=== PATIENT | male | born 1955 | race Caucasian/White ===

== ENCOUNTER 2020-08-26 23:58 | Outpatient (REF) | payer OTHER, SELFPAY ==
[2020-08-27 17:53] LABS: PSA, Screening 0.8 ng/mL (0.0-4.5)
== END 2020-08-26 23:59 | disposition home or self-care (01) ==
LOC: NCHCN 23:58
PROVIDERS: PCP Family Medicine; Visit Provider Family Medicine
DX: Z00.00 Encounter for general adult medical examination without abnormal findings (principal); Z12.5 Encounter for screening for malignant neoplasm of prostate
CPT/HCPCS: 84153

== ENCOUNTER 2021-02-24 15:01 | Outpatient (REF) | payer OTHER, SELFPAY ==
[2021-02-24 16:25] LABS: Hemoglobin A1C 5.6 % (<5.7)
[2021-02-24 17:10] LABS: ALT 23 U/L (16-63); AST 24 U/L (15-37); Albumin 4.2 g/dL (3.4-5.0); Alkaline Phosphatase 47 U/L (46-116); Anion Gap 8.3 mmol/L (3-11); BUN 25 mg/dL (7-18); Bilirubin, Total 0.4 mg/dL (0.2-1.0); CO2 27.7 mmol/L (21.0-32.0); CREATININE 0.9 mg/dL (0.70-1.30); Calcium 8.9 mg/dL (8.5-10.1); Calculated LDL 103 mg/dL (<100); Chloride 105 mmol/L (98-107); Cholesterol 176 mg/dL (<200); Glucose 98 mg/dL (74-106); HDL Cholesterol 56 mg/dL (40-60); Potassium 4.2 mmol/L (3.5-5.1); Sodium 141 mmol/L (136-145); TSH (W/Ref FT4) 1.41 uIU/mL (0.36-3.74); Total Protein 7.1 g/dL (6.4-8.2); Triglyceride 88 mg/dL (<150); Vitamin B12 680 pg/mL (193-986)
== END 2021-02-24 15:02 | disposition home or self-care (01) ==
LOC: NCHCN 15:01
PROVIDERS: PCP Family Medicine; Visit Provider Family Medicine
DX: I10 Essential (primary) hypertension (principal); R20.0 Anesthesia of skin; R79.89 Other specified abnormal findings of blood chemistry
CPT/HCPCS: 80053; 80061; 82607; 83036; 84443

== ENCOUNTER → 2022-01-07 02:08 | Outpatient (CLI) | payer MEDICARE, SELFPAY ==
--- NOTE | 2022-01-07 07:00 | DI.US_ITS ---
Exam(s) US ABDOMEN EXAM: US ABDOMEN CLINICAL HISTORY: CIRRHOSIS OF LIVER, K74.60; HEPATITIS C TREATMENT, Z79.899 TECHNIQUE: Ultrasound of complete upper abdomen performed using standard protocol. COMPARISON: US ABDOMEN ULTRASOUND (P) from 08/20/2016 FINDINGS: There is no ascites evident. LIVER: There are no hepatic lesions evident nor obvious dilatation of intrahepatic ducts. Liver is m ildly hyperechoic indicating element of steatosis. GALLBLADDER/BILIARY: There are no gallstones. No gallbladder wall edema nor pericholecystic fluid. The common hepatic duct isnot dilated, measuring 4mm at the level of demond hepatis. PANCREAS: There is no evidence of pancreatic mass nor dilatation of the pancreatic duct. SPLEEN: The spleen is not enlarged and there are no intrasplenic lesions evident. KIDNEYS:Kidneys exhibit normal size with no evidence of solid mass, calculus, nor hydronephrosis. The re are 2 cysts in the lateral cortex of the left kidney. The larger measures approximately 5.6 x 4.8 cm. No solid lesions. ABDOMINAL AORTA: There is no evidence of abdominal aortic aneurysm. IVC: Normal diameter where visualized. IMPRESSION: 1. No evidence of cholelithiasis nor dilatation of the biliary tree. 2. Two benign cysts are noted in the left kidney. The larger measures 5.6 x 4.8 cm. 3. There is no ascites. DATA REPOSITORY:
== END ==
PROVIDERS: PCP Family Medicine; Visit Provider Family Medicine
DX: K74.60 Unspecified cirrhosis of liver (principal); Z79.899 Other long term (current) drug therapy; N28.1 Cyst of kidney, acquired
CPT/HCPCS: 76700

== ENCOUNTER 2022-05-27 15:24 | Outpatient (REF) | payer MEDICARE, SELFPAY ==
[2022-05-27 15:33] LABS: AST 17 U/L (15-37); Albumin 4.1 g/dL (3.4-5.0); Alkaline Phosphatase 62 U/L (46-116); Anion Gap 7.6 mmol/L (3-11); BUN 22 mg/dL (7-18); Bilirubin, Total 0.4 mg/dL (0.2-1.0); CO2 26.4 mmol/L (21.0-32.0); CREATININE 0.8 mg/dL (0.70-1.30); Calcium 8.9 mg/dL (8.5-10.1); Chloride 108 mmol/L (98-107); Glucose 98 mg/dL (74-106); Sodium 142 mmol/L (136-145); Total Protein 7.5 g/dL (6.4-8.2)
[2022-05-27 15:34] LABS: ALT < 6 U/L (16-63)
[2022-05-31 08:16] LABS: AFP Tumor Marker <2.5 ng/mL (<8.1)
== END 2022-05-27 15:25 | disposition home or self-care (01) ==
LOC: NCHCN 15:24
PROVIDERS: PCP Family Medicine; Visit Provider Family Medicine
DX: Z00.00 Encounter for general adult medical examination without abnormal findings (principal); R94.5 Abnormal results of liver function studies; K74.60 Unspecified cirrhosis of liver; Z13.89 Encounter for screening for other disorder; I10 Essential (primary) hypertension; Z79.899 Other long term (current) drug therapy
CPT/HCPCS: 80053; 82105

== ENCOUNTER 2022-07-09 13:43 | Outpatient (CLI) | payer MEDICARE, SELFPAY ==
--- NOTE | 2022-07-09 | DI.MRI_ITS ---
Exam(s) MR UPPER JOINT RT WO EXAM: MR UPPER JOINT RT WO CLINICAL HISTORY: PAIN, RT ROTATOR CUFF TEAR, M75.101 TECHNIQUE: Multiplanar multisequence MRI of the shoulder was performed. COMPARISON: MR MRI R UPPER JOINT WO CONT from 05/11/2012 FINDINGS: MARROW:There is no evidence of fracture, Hill-Sachs deformity, nor ominous osseous lesions. ROTATOR CUFF MECHANISM: AC JOINT/ACROMIUM: Mild-moderate degenerative changes in the AC joint.. There is no evidence of os acromiale. Supraspinatus: There is a large full-thickness tear of the rotator cuff-supraspinatus tendon. Retrac tion musculotendinous to junction of the mid and lateral thirds of the humeral head. Measurement of the AP the air gap area is 2.8 cm. Significant fluid in the subacromial-subdeltoid bursa. No promin ent atrophy. Infraspinatus: Cystic degenerative change at the musculotendinous junction evident. No full-thicknes s tear. Mild atrophy. Teres Minor: Intact. No evidence of tear nor muscle atrophy. Subscapularis/anterior cuff: There is area of signal abnormality consistent with significant tearing of the anterior cuff-subscapularis anterior to the lesser tuberosity. BICEPS TENDON: Not displaced from the intertubercular groove but does contain fluid in tendon sheath. LABRUM: There is thinning of the superior labrum. Fraying of the posterior labrum. Tear of the ante rior labrum noted. GLENOHUMERAL JOINT: Mild degenerative changes. No osteophytes. Small nonhemorrhagic joint effusion. No obvious loose bodies in the joint nor down the biceps tendon sheath which is filled with fluid. Small degenerative subarticular cyst in the lateral aspect of the humeral head. No degenerative cys ts in the osseous glenoid. IMPRESSION: 1. There is a full-thickness tear of the supraspinatus with AP gap measurement of 2.8 cm. There is s ome cystic degenerative change at the musculotendinous junction of the infraspinatus. 2. There is significant tearing of the anterior cuff-subscapularis just anterior to the lesser tubero sity. 3. Multilevel labral fraying/tear. No paralabral cyst evident. Small joint effusion. Fluid extends down the long head biceps tendon sheath. Mild degenerative butts ges in the glenohumeral joint. No obvious loose intra-articular bodies. DATA REPOSITORY:
--- OUTSIDE RECORDS SUMMARY | 2022-07-09 13:48 | XMS_ITS | Continuity of Care Document ---
:1955 Author Organization [facility] Ambulatory Clinics Address [address] [place] [address] Care Team Providers Name Role Phone Lala Stockton Primary Care Physician Encounter [facility] NBR [id number] Date(s): 06/01/22 - 06/01/22 [facility] Ambulatory Clinics [address] [place] [address]- [place] Social History Social History Type Response Sex Male Patient Care team information Care Team PersonnelName: Lala Stockton Position: No Access Member Role: Primary Care Physician Address: Address: [address] [place], [place] [address]
--- OUTSIDE RECORDS SUMMARY | 2022-07-09 13:48 | XMS_ITS | Continuity of Care Document ---
:1955 Author Organization [facility] Ambulatory Clinics Address [address] [place] [address] Care Team Providers Name Role Phone Lala Stockton Primary Care Physician Encounter [facility] NBR [id number] Date(s): 06/29/22 - 06/29/22 [facility] Ambulatory Clinics [address] [place], [place] [address] Encounter Diagnosis Right rotator cuff tear (Discharge Diagnosis) - 06/29/22 Discharge Disposition: Home or Self Care Attending Physician: Warner Kerns MD Allergies, Adverse Reactions, Alerts Substance Reaction Severity Status codeine Moderate Active lisinopril Moderate Active Chantix Severe Active Functional Status 06/29/22 Other exposure to Infectious Disease None Medications amLODIPine 10 mg oral tablet 10 mg = 1 tab, Oral, Daily, # 30 tab, 0 Refill(s) Start Date: 06/25/22 Status: OrderedtraMADol 50 mg oral tablet 50 mg = 1 tab, Oral, every 12 hr, PRN as needed for pain, 0 Refill(s) Start Date: 06/25/22 Status: OrderedVitamin D3 1000 intl units oral capsule 25 mcg = 1 cap, Oral, Daily, # 75 cap, 0 Refill(s) Start Date: 06/25/22 Status: Ordered Problem List Condition Confirmation Course Effective Dates Status Health I nformant Status Liver cirrhosis Confirmed Active Cognitive changes Confirmed Active Gastritis Confirmed Active HTN (hypertension) Confirmed Active Inguinal hernia Confirmed Active Lumbar radiculopathy Confirmed Active Otitis externa of Confirmed Active both ears Raynaud's phenomenon Confirmed Active Right rotator cuff Confirmed Active tear Vital Signs Most recent to oldest [Reference Range]: 1 Peripheral Pulse Rate [60-100 bpm] 88 bpm (06/29/22 11:52 AM) Blood Pressure [90-140/60-90 mmHg] 132/80 mmHg (06/29/22 11:52 AM) Weight 80.74 kg (06/29/22 11:52 AM) Weight Measured (lbs) 178.001 lb (06/29/22 11:52 AM) Height 172.72 cm (06/29/22 11:52 AM) Height/Length Measured (inches) 68 inch (06/29/22 11:52 AM) BSA Measured 1.97 m2 (06/29/22 11:52 AM) Body Mass Index 27.06 kg/m2 (06/29/22 11:52 AM) Social History Social History Type Response Smoking Status Smoking tobacco use: Former tobacco user; Smokeless tobacco user within last 30 days entered on: 06/25/22 Sex Male Physician Outpatient Note Warner Kerns MD: PERFORM Event Display: Office Clinic Note Physician Authored Date: [id number] HIRA WHITTINGTON :1955 Age:66 years Sex:Male Visit Date:06/29/2022 Primary Care Physician: Lala Stockton Chief Complaint R shoulder pain History of Present Illness The patient is a 66-year-old gentleman whose had years of??intermittent pain to his right shoulder,??he says however over the last??2 months??the pain and weakness have significantly increased, he notes a lot of crepitus to his shoulder,??he said the pain is most severe with lifting or trying to reach above his head, he also has pain sleeping??or reaching into his body. Physical Exam Vitals & Measurements HR:??88??(Peripheral)?? BP:??132/80?? SpO2:??97%?? HT:??172.72??cm?? WT:??80.74??kg?? BMI:??27.06?? BSA:??1.97?? Review of studies:??X-rays of the patient's right shoulder are reviewed??and show no significant glenohumeral osteoarthritis,??shoulder exam ?? Both shoulders are examined. Range of motion of the shoulder is examined in the forward elevation, abduction, external rotation and internal rotation behind the back planes. External rotation is assessed both with the arm in neutral adduction and at 90 degrees of abduction. Similarly internal rotation is performed at 90 degrees of abduction and is compared with the contralateral side. Neer and Dumont impingement signs are examined. Strength is assessed in forward elevation, abduction, external andinternal rotation planes.?Cross-arm adduction test is examined. The shoulder is systematically palpated anteriorlyin the region of the coracoid process, the anterior joint line and bicipital groove. The AC joint ispalpated. The greater tuberosity is palpated. The posterior joint line is palpated. Rutledge and active compression tests are performed. The supraspinatus and infraspinatus fossa are examined for signs of atrophy. Stability is test using the apprehension, relocation and Jerk Test. ?? Focused exam of the right shoulder shows 160 degrees of active elevation, there is significant crepitus with elevation,??there is no tenderness the AC joint moderate tenderness over the anterolateral acromion,??there is 4-5 strength to abduction, 4-/5 strength to external rotation, 4-5 strength in internal rotation,??no glenohumeral instability. Assessment/Plan 1.??Right rotator cuff tear??M75.101 Patient with??pain, weakness??and significant crepitus??to the right shoulder,??I think given that the patient has had injection therapy in the past at this point we should get an MRI to look for rotator cuff pathology??patient has a tear we will discuss repair if he does not have a full-thickness tear I likely will try an injection??and exercises again. Problem List/Past Medical History Ongoing Cognitive changes Gastritis HTN (hypertension) Inguinal hernia Liver cirrhosis Lumbar radiculopathy Otitis externa of both ears Raynaud's phenomenon Right rotator cuff tear Historical No qualifying data Medications amLODIPine 10 mg oral tablet, 10 mg= 1 tab, Oral, Daily traMADol 50 mg oral tablet, 50 mg= 1 tab, Oral, every 12 hr, PRN Vitamin D3 1000 intl units oral capsule, 25 mcg= 1 cap, Oral, Daily Allergies Chantix codeine lisinopril Social History Electronic Cigarette/Vaping Electronic Cigarette Use: Never. Tobacco Former tobacco user Tobacco Use:. Smokeless tobacco user within last 30 days Smokeless Tobacco use:. Electronically Signed on 06/29/22 12:35 PM Warner Kerns MD Patient Care team information PersonnelName: Lala Stockton Address: Address: [address] [place] [id number]
--- OUTSIDE RECORDS SUMMARY | 2022-07-09 13:48 | XMS_ITS | Continuity of Care Document ---
:1955 Author Organization [facility] e Address [address] [place] [address] Care Team Providers Name Role Phone Lala Stockton Primary Care Physician Encounter [facility] NBR [id number] Date(s): 06/29/22 - 06/29/[address] [address]- Discharge Disposition: Home or Self Care Attending Physician: Warner Kerns MD Admitting Physician: Warner Kerns MD Referring Physician: Warner Kerns MD Allergies, Adverse Reactions, Alerts Substance Reaction Severity Status codeine Moderate Active lisinopril Moderate Active Chantix Severe Active Medications amLODIPine 10 mg oral tablet 10 [...] Active Right rotator cuff Confirmed Active tear Results Radiology Reports Exam Date Time Procedure Performing Provider Status 06/29/22 12:24 PM XR Shoulder Complete 2+ Views Sarah Duran n; Auth (Verified) Right Notes:(XR Shoulder Complete 2+ Views Right) Reason For Exam: PainXR Shoulder Complete 2+ Views Right EXAM DESCRIPTION: XR Shoulder Complete 2+ Views Right 06/29/2022 INDICATION: PAIN COMPARISON: 03/24/2012 IMPRESSION: No acute fracture or dislocation AC joint arthritic changes with joint space narrowing No focal lytic or sclerotic lesion. JOB #: [id number] Final Signed by: Geoffrey Delgado MD Signed (Electronic Signature): 06/29/2022 12:29 pm Social History Social History Type Response Smoking Status Smoking tobacco use: Former tobacco user; Smokeless tobacco user within last 30 days entered on: 06/25/22 Sex Male XR Shoulder - right GE 2 Views Geoffrey Delgado MD: VERIFY, VERIFY Event Display: Report EXAM DESCRIPTION: XR Shoulder Complete 2+ Views Right 06/29/2022 INDICATION: PAIN COMPARISON: 03/24/2012 IMPRESSION: No acute fracture or dislocation AC joint arthritic changes with joint space narrowing No focal lytic or sclerotic lesion. JOB #: [id number] Final Signed by: Geoffrey Delgado MD Signed (Electronic Signature): 06/29/2022 12:29 pm Patient Care team information PersonnelName: Lala Stockton Address: Address: [address] [place] [phone] [place]
== END 2022-07-09 14:03 ==
PROVIDERS: PCP Family Medicine; Visit Provider Orthopaedic Surgery
DX: M25.511 Pain in right shoulder (principal); M75.101 Unspecified rotator cuff tear or rupture of right shoulder, not specified as traumatic; M25.411 Effusion, right shoulder; M19.011 Primary osteoarthritis, right shoulder
CPT/HCPCS: 73221

== ENCOUNTER 2022-12-31 12:38 | Outpatient (REF) | payer MEDICARE, SELFPAY ==
[2022-12-31 15:43] LABS: Hemoglobin A1C 5.1 % (<5.7)
[2022-12-31 16:26] LABS: ALT 24 U/L (16-63); AST 18 U/L (15-37); Albumin 4.3 g/dL (3.4-5.0); Alkaline Phosphatase 65 U/L (46-116); Anion Gap 8.2 mmol/L (3-11); BUN 20 mg/dL (7-18); Bilirubin, Total 0.6 mg/dL (0.2-1.0); CO2 27.8 mmol/L (21.0-32.0); CREATININE 0.9 mg/dL (0.70-1.30); Calculated LDL 95 mg/dL (<100); Chloride 106 mmol/L (98-107); Cholesterol 168 mg/dL (<200); Estimated GFR 92.45 (mL/min/1.73m2); Glucose 113 mg/dL (74-106); HDL Cholesterol 62 mg/dL (40-60); Potassium 4.1 mmol/L (3.5-5.1); Sodium 142 mmol/L (136-145); TSH (W/Ref FT4) 1.44 uIU/mL (0.36-3.74); Total Protein 7.6 g/dL (6.4-8.2); Triglyceride 57 mg/dL (<150); Vitamin B12 788 pg/mL (193-986)
[2022-12-31 22:28] LABS: PSA, Screening 0.9 ng/mL (<=4.5)
[2023-01-03 11:01] LABS: Lyme Ab w Rflx to Lyme Confirm Negative (Negative)
== END 2022-12-31 12:39 | disposition home or self-care (01) ==
LOC: NCHCN 12:38
PROVIDERS: PCP Family Medicine; Visit Provider Family Medicine
DX: I10 Essential (primary) hypertension (principal); G62.9 Polyneuropathy, unspecified; W57.XXXA Bitten or stung by nonvenomous insect and other nonvenomous arthropods, initial encounter; T14.8XXA Other injury of unspecified body region, initial encounter; Z12.5 Encounter for screening for malignant neoplasm of prostate; R73.09 Other abnormal glucose; Z79.899 Other long term (current) drug therapy
CPT/HCPCS: 80053; 80061; 84153; 82607; 83036; 84443; 86618

== ENCOUNTER 2023-04-11 13:47 | Outpatient (REF) | payer MEDICARE, SELFPAY ==
[2023-04-11 16:19] LABS: HCT 46.9 % (40.0-50.0); HGB 16.1 g/dL (13.5-17.5); MCH 30.3 pg (27.0-33.0); MCHC 34.3 % (32.0-36.0); MCV 88 fL (80-95); MPV 9.3 fL (8.0-11.0); Platelet Count 148 10^3/uL (130-400); RBC 5.31 10^6/uL (4.36-5.78); RDW-SD 42.2 fL; WBC 4.57 10^3/uL (4.4-10.8)
[2023-04-11 16:29] LABS: Anion Gap 9.6 mmol/L (3-11); BUN 25 mg/dL (7-18); CO2 24.4 mmol/L (21.0-32.0); Calcium 9.4 mg/dL (8.5-10.1); Chloride 103 mmol/L (98-107); Estimated GFR 81.47 (mL/min/1.73m2); Glucose 104 mg/dL (74-106); Potassium 4.3 mmol/L (3.5-5.1); Sodium 137 mmol/L (136-145)
[2023-04-12 10:22] LABS: Lyme Ab w Rflx to Lyme Confirm Negative (Negative)
[2023-04-13 23:51] LABS: Anaplasma phagocytophilum Negative (Negative); B. miyamotoi PCR Negative (Negative); Babesia divergens/MO-1 Negative (Negative); Babesia duncani Negative (Negative); Babesia microti Negative (Negative); Ehrlichia chaffeensis Negative (Negative); Ehrlichia ewingii/canis Negative (Negative); Ehrlichia muris eauclairensis Negative (Negative)
== END 2023-04-11 13:48 | disposition home or self-care (01) ==
LOC: NCHCN 13:47
PROVIDERS: PCP Family Medicine; Visit Provider Nurse Practitioner Family
DX: R42 Dizziness and giddiness (principal); W57.XXXA Bitten or stung by nonvenomous insect and other nonvenomous arthropods, initial encounter; T14.8XXA Other injury of unspecified body region, initial encounter; I10 Essential (primary) hypertension
CPT/HCPCS: 80048; 85027; 87798; 86618

== ENCOUNTER 2023-09-22 14:54 | Outpatient (REF) | payer MEDICARE, SELFPAY ==
[2023-09-22 16:56] LABS: ALT 23 U/L (16-63); AST 20 U/L (15-37); Albumin 4.1 g/dL (3.4-5.0); Alkaline Phosphatase 62 U/L (46-116); Anion Gap 9.4 mmol/L (3-11); BUN 24 mg/dL (7-18); Bilirubin, Total 0.7 mg/dL (0.2-1.0); CO2 26.6 mmol/L (21.0-32.0); CREATININE 1.1 mg/dL (0.70-1.30); Chloride 105 mmol/L (98-107); Estimated GFR 72.22 (mL/min/1.73m2); Glucose 93 mg/dL (74-106); Sodium 141 mmol/L (136-145); Total Protein 7.8 g/dL (6.4-8.2)
== END 2023-09-22 14:55 | disposition home or self-care (01) ==
LOC: NCHCN 14:54
PROVIDERS: PCP Family Medicine; Referring Provider Family Medicine; Visit Provider Family Medicine
DX: I10 Essential (primary) hypertension (principal)
CPT/HCPCS: 80053

== ENCOUNTER 2024-07-14 21:05 | Emergency (ER) | payer MEDICARE, SELFPAY ==
[2024-07-14] VITALS (17 sets, daily range): BP systolic 138–187; BP diastolic 69–92; PULSE 57–89; RESP 11–21; TEMP 36.4; O2SAT 96–99
--- NOTE | 2024-07-14 21:00 | DI.RAD_ITS ---
Exam(s) XR CHEST 2V PA LATERAL EXAM: XR CHEST 2V PA LATERAL CLINICAL HISTORY: Chest pain radiating down R arm TECHNIQUE: 2D digital imaging was performed of the chest. Two images were obtained. PA and lateral views were obtained. COMPARISON: No exams were available for comparison FINDINGS: MEDIASTINUM: Normal. HEART: Normal. PULMONARY VASCULATURE: Normal. LUNGS: Clear. PLEURAL SPACE: No pleural effusion or pneumothorax. BONE:Within normal limits for the patient's age. OTHER FINDINGS:Normal. IMPRESSION: No acute pulmonary findings. DATA REPOSITORY: RADIATION DOSE DELIVERED:
--- NOTE | 2024-07-14 21:00 | RT.EKG_ITS ---
APPROVED REPORT Exam: Resting ECG Reason for Exam: sob Patient Location: E HR:66 bpm ECG Measurements Heart Rate 66 AXIS NV 133 P 55 QRSd 112 QRS -49 QT 414 T 19 QTc 435 Conclusion Sinus rhythm...normal P axis, V-rate 60- 99 LAD, consider left anterior fascicular block...axis(240,-40), S>R II III aVF
--- NOTE | 2024-07-14 21:13 | W.ED.GENAD ---
Discharge Plan Disposition Patient Disposition: Home Discharge Details Clinical Impression: Chest wall pain, Partial thickness burn of back of right hand Primary Care Provider: Lala Stocktno V ED Provider: Jany Merlos Home Meds and New Rx's Prescriptions: No Action tramadol 50 MG tablet 50 mg PO PRN PRN nicotine (polacrilex) [Nicorelief] 4 MG gum 4 mg CH Q2H PRN PRN gabapentin 300 MG capsule 300 mg PO DAILY PRN PRN Patient Comments: 08/19/15 per PCP med list the script is for TID daily. But per pt he takes it daily in the AM and PRN when he needs it otherwise. jw lisinopril-hydrochlorothiazide 1 EACH tablet 1 ea PO DAILY cyclobenzaprine 10 MG tablet 10 mg PO HS PRN PRN Discharge Instructions Instructions: [facility] Additional Instructions: Please call [facility] first thing Tuesday morning to schedule follow-up appointment in the next week or two. Keep your burn clean and dry. Wash daily with antibacterial soap and water, apply a thin layer of antibiotic ointment, and cover with a nonstick dressing. Do not burst the blisters, they RVED to protect the skin as it heals. Keep an eye out for signs of infection such as redness, swelling, pus drainage, increasing pain, foul odor. If you notice any of these, please seek care immediately. Your cardiac workup today was reassuring. Your chest pain is most consistent with muscular pain. You may use lidocaine patches as needed for your chest wall discomfort. You may also apply heat or ice when you are not wearing the lidocaine patch (do NOT put heat or ice on the lidocaine patches), perform gentle stretches, and use muscle rubs such as IcyHot or Bengay. If you are chest wall pain persist, a referral to physical therapy may be indicated. Return to emergency care if you develop new chest pain, difficulty breathing, feel like you are going to pass out, or if you are very worried and need to be rechecked again immediately HPI General Date/Time Provider Initiated Documentation: 07/14/24 21:13. HPI Narrative: Gaston is a 68year old male who presents to the emergency department today for evaluation of right-sided chest pain that radiates down the right arm. He reports that pain started approximately 30 to 45 minutes ago with sternal chest pain that moved to the right side, then started going down his arm. It is accompanied by shortness of breath and nausea when the pain is at its worst. He denies associated fever/chills, dizziness, congestion/sore throat/cough, diaphoresis, pedal edema. He was given 324 aspirin en route by ambulance. He did have increased discomfort when he stood up from the ambulance stretcher to get onto the hospital stretcher. CP is described as an aching pain that radiates from anterior R chest into his R shoulder, goes down to his fingertips with movement. No history of cardiac disease, recent surgery/immobility, calf swelling/redness/tenderness, hormone use, blood clots. Chews tobacco, non-smoker. No alcohol use. Past medical history is significant for HTN, controlled with meds. Family history of cardiac disease. Physical exam reassuring. Gaston is alert and oriented, no acute distress. Easy work of breathing, lung sounds clear bilaterally. Normal heart sounds. Abdomen is soft, nondistended, nontender to palpation. No obvious JVD or pedal edema. Radial pulses equal bilaterally. Extremities warm and dry. He has approximately 8 cm burn to the dorsal aspect of his right hand extending from his proximal thumb down to the radial aspect of his wrist. This is not circumferential. There are blisters that are intact. D/dx includes but is not limited to: ACS, PE, muscle strain/shoulder soft tissue injury, GERD, cholangitis/cholecystitis, pancreatitis, esophageal spasm. Heart score 3, indicating low risk of Mace. I independently interpreted the following tests: EKG reassuring, normal sinus rhythm rate 66, no changes consistent with acute ischemia. Normal intervals. CBC, CMP, magnesium, lipase, and D-dimer all reassuring. Troponins flat for followed by 4 at 1 hour. 3-hour troponin not indicated While in the emergency department, Gaston received nitroglycerin sublingual. After first dose pain decreased from 5/10 to 3/10. He reports he is feeling significantly better after receiving the nitroglycerin. After review of labs, I came in to reassess Gaston. He is sitting comfortably at this time. He reports that yesterday he was working on a piece of equipment that required him to use a big wrench, he sustained a burn to the back of his right hand at that time. He has been keeping it clean and covered, applying Neosporin when it causes him discomfort. He does think that this may be muscle strain as he reflects on it, says that he had a little bit discomfort earlier in the day but did not notice it. On reevaluation he does have tenderness to palpation of the chest wall and says that it hurts if he moves his arm, especially if he lifts the arm. Reviewed discharge instructions with patient, including symptomatic management and red flags indicating need for return to emergency care Related Data Home Medications ?Medication ?Instructions ?Recorded ?Confirmed tramadol 50 mg tablet 50 mg PO PRN PRN 04/18/13 08/27/15 cyclobenzaprine 10 mg tablet 10 mg PO HS PRN PRN 08/19/15 08/27/15 gabapentin 300 mg capsule 300 mg PO DAILY PRN PRN 08/19/15 08/27/15 lisinopril 20 1 ea PO DAILY 08/19/15 08/27/15 mg-hydrochlorothiazide 25 mg tablet nicotine (polacrilex) 4 mg gum 4 mg CH Q2H PRN PRN 08/19/15 08/19/15 (Nicorelief) Allergies Allergy/AdvReac Type Severity Reaction Status Date / Time codeine Allergy Mild Itching Unverified 08/27/15 06:18 varenicline tartrate (From Allergy Unknown Unverified 08/27/15 06:18 Chantix) General Stated Complaint: Chest Pain REJI: 3 Review of Systems Narrative: see hpi Exam Const General: cooperative, healthy appearing, comfortable, no acute distress, well developed and well groomed Nutritional Appearance: average body habitus Neck Neck: normal visual inspection Chest Chest: normal inspection of the chest and normal palpation of entire chest wall Resp Effort & Inspection: normal respiratory effort and able to speak in complete sentences Auscultation: clear to auscultation bilaterally Cardio Jugular venous pressure: no JVD Rate: regular rate Rhythm: regular rhythm Pulses: radial pulses present GI Inspection: normal to inspection, non-distended and no visible pulsation Palpation: soft, not firm, not rigid and nontender Extrem General: normal to inspection, capillary refill normal, no pedal edema and no calf tenderness Course Vital Signs Vital signs: Vital Signs Pulse 67 07/14/24 21:07 Respiratory Rate 15 07/14/24 21:07 Blood Pressure 187/84 H 07/14/24 21:07 Pulse Oximetry 96 07/14/24 21:07 Pulse 67 07/14/24 21:07 Respiratory Rate 15 07/14/24 21:10 Respiratory Effort Normal 07/14/24 21:10 Respiratory Depth Normal 07/14/24 21:10 Respiratory Pattern Normal 07/14/24 21:10 Blood Pressure 187/84 H 07/14/24 21:07 Blood Pressure Position Sitting 07/14/24 21:07 Pulse Oximetry 96 07/14/24 21:07 Oxygen Delivery Method Room Air 07/14/24 21:07 Oxygen Flow Rate 0 07/14/24 21:07 Medical Decision Making Quality:SDOH Health Related Social Needs: No Data to Display PFSH All Active Problems (Updated 07/14/24 @ 22:22 by Jany Beckham) Partial thickness burn of back of right hand (Acute) Chest wall pain (Acute) Medical History (Updated 07/14/24 @ 22:22 by Jany Beckham) Inguinal hernia Memory impairment Cirrhosis of liver Depression Joint pain Acute hepatitis c Low back pain Essential hypertension Surgical History (Updated 05/10/18 @ 14:34 by [employer]) 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 PERAZA Social History Smoking/Tobacco Use Status: Current-Occasional Tobacco Type: smokeless tobacco Smoking risk assessment performed?: Yes Drug use: Occasionally
[2024-07-14] MEDS: nitroGLYcerin 0.4 MG TAB (21:14)
[2024-07-14 21:22] LABS: Abs Immature Grans 0.02 10^3/uL (0.0-0.06); Absolute Basophil Count 0.02 10^3/uL (0.0-0.2); Absolute Eosinophil Count 0.11 10^3/uL (0.0-0.7); Absolute Lymphocyte Count 1.58 10^3/uL (1.2-3.4); Absolute Monocyte Count 0.43 10^3/uL (0.1-0.8); Absolute Neutrophil Count 3.44 10^3/uL (1.2-6.7); Basophils % 0.4 %; HCT 44.7 % (40.0-50.0); HGB 15.1 g/dL (13.5-17.5); Immature Grans % 0.4 %; Lymphocytes % 28.2 %; MCH 30.4 pg (27.0-33.0); MCHC 33.8 % (32.0-36.0); MCV 90 fL (80-95); Monocytes % 7.7 %; Neutrophils % 61.3 %; Platelet Count 155 10^3/uL (130-400); RBC 4.96 10^6/uL (4.36-5.78); RDW 12.7 % (11.8-14.1); RDW-SD 41.8 fL
[2024-07-14] MEDS: Famotidine 20 MG/2 ML VIAL 40 MG IVP (21:24)
[2024-07-14 21:40] LABS: ALT 19 U/L (16-63); AST 25 U/L (15-37); Albumin 3.6 g/dL (3.4-5.0); Alkaline Phosphatase 64 U/L (46-116); Anion Gap 9.1 mmol/L (3-11); BUN 23 mg/dL (7-18); Bilirubin, Total 0.66 mg/dL (0.2-1.0); CO2 26.9 mmol/L (21.0-32.0); CREATININE 1.1 mg/dL (0.70-1.30); Calcium 8.4 mg/dL (8.5-10.1); Chloride 107 mmol/L (98-107); Estimated GFR 72.22 (mL/min/1.73m2); Glucose 105 mg/dL (74-106); Lipase 33 U/L (<78); Sodium 143 mmol/L (136-145); Total Protein 6.9 g/dL (6.4-8.2); Troponin I 4 ng/L (<or=76)
[2024-07-14 21:55] LABS: D-Dimer 418 ng/mlFEU (<500)
[2024-07-14] MEDS: Lidocaine 5% Patch 1 PATCH TP (22:22)
[2024-07-14 22:33] LABS: Troponin I 4 ng/L (<or=76)
--- NOTE | 2024-07-14 23:13 | DI.VRAD_ITS ---
PROCEDURE INFORMATION: Exam: XR Chest Exam date and time: 07/14/2024 9:48 PM Age: 68 years old Clinical indication: Other: Chest pain radiating down R arm TECHNIQUE: Imaging protocol: Radiologic exam of the chest. Views: 2 views. COMPARISON: MR UPPER JOINT RT WO 07/09/2022 9:25 AM FINDINGS: Lungs: Unremarkable. No consolidation. Pleural spaces: Unremarkable. No pleural effusion. No pneumothorax. Heart/Mediastinum: Unremarkable. No cardiomegaly. Bones/joints: Unremarkable. IMPRESSION: No acute findings. Dictated and Authenticated by: Gabbie Anderson MD. Ordering:GABRIELLE Carmichael MD
== END 2024-07-14 22:56 | disposition home or self-care (01) ==
LOC: ER 22:37
PROVIDERS: Emergency Provider Nurse Practitioner Family; PCP Family Medicine
DX: R07.89 Other chest pain (principal); T23.261A Burn of second degree of back of right hand, initial encounter; X17.XXXA Contact with hot engines, machinery and tools, initial encounter
CPT/HCPCS: 80053; 83690; 93005; 96374; 99285; 71046; 83735; 84484; 85025; 85379; 93010

== ENCOUNTER 2024-08-29 15:34 | Outpatient (CLI) | payer MEDICARE, SELFPAY ==
--- NOTE | 2024-08-29 13:30 | DI.RAD_ITS ---
Exam(s) XR SHOULDER RT COMPLETE 2+V EXAM: XR SHOULDER RT COMPLETE 2+V CLINICAL HISTORY: RIGHT SHOULDER PAIN. TECHNIQUE: 2D digital imaging was performed of the right shoulder. Three images were obtained. Axi llary and Grashey views were obtained. COMPARISON: MR MR UPPER JOINT RT WO from 07/09/2022 CR,XR XR CHEST 2V PA LATERAL from 07/14/2024 FINDINGS: BONES: No acute fracture is present. No bony destructive lesion is seen. JOINTS: No dislocation present. There are degenerative changes again seen at the glenohumeral and acr omioclavicular joints. SOFT TISSUE: There are dystrophic calcifications adjacent to the humeral head and the greater tuberos ity. IMPRESSION: Arthrosis of the right shoulder as described. DATA REPOSITORY: RADIATION DOSE DELIVERED:
== END 2024-08-29 15:35 | disposition home or self-care (01) ==
LOC: DIORS 15:34
PROVIDERS: PCP Family Medicine; Referring Provider Family Medicine; Visit Provider Student in an Organized Health Care Education/Training Program
DX: M75.101 Unspecified rotator cuff tear or rupture of right shoulder, not specified as traumatic; M12.811 Other specific arthropathies, not elsewhere classified, right shoulder
CPT/HCPCS: 99214; 73030

== ENCOUNTER 2024-08-31 00:50 | Outpatient (CLI) | payer MEDICARE, SELFPAY ==
--- NOTE | 2024-08-31 08:16 | DI.CT_ITS ---
Exam(s) CT UPPER EXTREMITY RT WO EXAM: CT UPPER EXTREMITY RT WO CLINICAL HISTORY: PREOP,rt rotator cuff arthropathy,m12.811,m75.101 TECHNIQUE: Imaging Protocol: Axial computed tomography images with coronal and sagittal reformatted images were created and reviewed. CONTRAST MATERIAL: Noncontrast COMPARISON: CR XR SHOULDER RT COMPLETE 2+V from 08/29/2024 FINDINGS: Bones: There is no evidence of fracture or dislocation. Bony alignment is satisfactory. No cellulitic or osteomyelitic changes are identified. No lytic or sclerotic lesions are identified. Spurring at the undersurface of the acromion and grea ter tuberosity. Joints: There is no significant spurring at the AC joint at the glenoid joint shows mild narrowing. There is spurring at the glenoid, greater inferiorly. There is mild spurring at the inferior margin of the humeral head. Soft Tissues: Unremarkable. IMPRESSION: Moderate degenerative changes of the humeral joint RADIATION DOSE DELIVERED: 199.52mGy.cm Total DLP DATA REPOSITORY: All CT scans at this facility are submitted to the National Radiology Data Registry (NRDR) Dose Index Registry (DIR) with the [employer] ([employer]). RADIATION OPTIMIZATION: All CT scans at this facility use at least one of these dose optimization te chniques: automated exposure control; mA and/or kV adjustment per patient size (includes targeted exa ms where dose is matched to clinical indication); or iterative reconstruction.
== END 2024-08-31 01:10 ==
LOC: DI 00:50
PROVIDERS: PCP Family Medicine; Visit Provider Student in an Organized Health Care Education/Training Program
DX: M12.811 Other specific arthropathies, not elsewhere classified, right shoulder
CPT/HCPCS: 73200

== ENCOUNTER → 2024-09-05 13:23 | Outpatient (BNVA) | payer MEDICARE, SELFPAY | PROVIDERS: PCP Family Medicine; Referring Provider Family Medicine; Visit Provider Student in an Organized Health Care Education/Training Program | DX: M75.101 Unspecified rotator cuff tear or rupture of right shoulder, not specified as traumatic (principal); M12.811 Other specific arthropathies, not elsewhere classified, right shoulder; K74.60 Unspecified cirrhosis of liver | CPT/HCPCS: 99214 ==

== ENCOUNTER → 2024-10-03 10:41 | Outpatient (BNVA) | payer MEDICARE, SELFPAY | PROVIDERS: PCP Family Medicine; Referring Provider Family Medicine; Visit Provider Nurse Practitioner Adult Health | DX: G56.01 Carpal tunnel syndrome, right upper limb (principal); G56.21 Lesion of ulnar nerve, right upper limb | CPT/HCPCS: 95909; 99214 ==

== ENCOUNTER 2024-11-06 12:15 | Outpatient (REF) | payer MEDICARE, SELFPAY ==
[2024-11-06 17:18] LABS: Hemoglobin A1C 5.3 % (<5.7)
[2024-11-06 17:23] LABS: ALT 80 U/L (16-63); AST 48 U/L (15-37); Albumin 4.3 g/dL (3.4-5.0); Alkaline Phosphatase 78 U/L (46-116); Anion Gap 14.9 mmol/L (3-11); BUN 26 mg/dL (7-18); Bilirubin, Total 0.9 mg/dL (0.2-1.0); CO2 20.1 mmol/L (21.0-32.0); Calcium 9.4 mg/dL (8.5-10.1); Chloride 108 mmol/L (98-107); Estimated GFR 80.47 (mL/min/1.73m2); Glucose 99 mg/dL (74-106); Sodium 143 mmol/L (136-145); TSH 1.98 uIU/mL (0.36-3.74); Total Protein 7.6 g/dL (6.4-8.2); Vitamin B12 889 pg/mL (193-986)
[2024-11-07 09:53] LABS: AFP Tumor Marker <2.5 ng/mL (<8.1)
[2024-11-07 13:11] LABS: Albumin g/dL 4.5 g/dL (3.6-5.2); Total Protein 7.5 g/dL (6.3-8.2)
== END 2024-11-06 12:16 | disposition home or self-care (01) ==
LOC: NCHCN 12:15
PROVIDERS: PCP Family Medicine; Visit Provider Family Medicine
DX: G62.9 Polyneuropathy, unspecified (principal); K74.60 Unspecified cirrhosis of liver
CPT/HCPCS: 80053; 82105; 82607; 83036; 84165; 84443

== ENCOUNTER 2024-11-20 13:04 | Outpatient (REF) | payer MEDICARE, SELFPAY ==
[2024-11-20 15:55] LABS: ALT 55 U/L (16-63); AST 37 U/L (15-37)
[2024-11-22 13:02] LABS: HCV RNA Qualitative Undetected (Undetected)
== END 2024-11-20 13:05 | disposition home or self-care (01) ==
LOC: NCHCN 13:04
PROVIDERS: PCP Family Medicine; Visit Provider Family Medicine
DX: Z86.19 Personal history of other infectious and parasitic diseases (principal)
CPT/HCPCS: 87522; 84450; 84460

== ENCOUNTER 2024-11-27 00:43 | Outpatient (CLI) | payer MEDICARE, SELFPAY ==
--- NOTE | 2024-11-27 | DI.US_ITS ---
Exam(s) US ABDOMEN LIMITED EXAM: US ABDOMEN LIMITED CLINICAL HISTORY: H/o hepatitis C, Z86.19-personal h/o other infectious and parasitic disease TECHNIQUE: Ultrasound abdomen performed using standard protocol. COMPARISON: US US ABDOMEN from 01/07/2022 FINDINGS: There is no ascites evident. LIVER: Liver is hyperechoic indicating steatosis. There are no obvious discrete focal hepatic lesion s identified. GALLBLADDER/BILIARY: There are no gallstones. No gallbladder wall edema nor pericholecystic fluid. The common hepatic duct isnot dilated, measuring 4-5mm at the level of demond hepatis. PANCREAS: There is no evidence of pancreatic mass nor dilatation of the pancreatic duct. Pancreatic tail is obscured by overlying bowel gas. RIGHT KIDNEY:No evidence of solid mass, calculus, nor hydronephrosis. No cortical cysts evident. IMPRESSION: 1. No evidence of cholelithiasis nor dilatation of the biliary tree. 2. Hepatic steatosis. There no discrete focal hepatic lesions evident. 3. No other right upper quadrant ultrasound findings and there is no ascites. DATA REPOSITORY:
== END 2024-11-27 01:03 ==
LOC: DI 00:43
PROVIDERS: PCP Family Medicine; Visit Provider Family Medicine
DX: Z86.19 Personal history of other infectious and parasitic diseases (principal); K76.0 Fatty (change of) liver, not elsewhere classified
CPT/HCPCS: 76705

== ENCOUNTER → 2025-06-26 01:22 | Outpatient (CLI) | payer MEDICARE, SELFPAY ==
--- NOTE | 2025-06-26 07:30 | DI.US_ITS ---
APPROVED REPORT EXAM: Comprehensive 2D, Doppler, and color-flow Echocardiogram Patient Location: Out-Patient Refractory Worker: aSdaf Jackson RDCS (AE) Indications: Lower ext edema, Incomplete RBBB w/ant fasicular block Other Information Study Quality: Adequate Conclusion Normal left ventricular wall thickness and chamber size. Ejection fraction is 55%. Wall motion is normal Normal right ventricular size and function Both atria are normal in size There is no structural or hemodynamically significant valvular disease Normal estimated right ventricular systolic pressure 23 mmHg Mildly dilated ascending aorta 3. 6 3 cm Wall motion Left Ventricle The left ventricle is normal size. The left ventricular systolic function is normal. The left ventricular ejection fraction is within the normal range. There is normal left ventricular wall thickness. There is normal LV segmental wall motion. There is no ventricular septal defect visualized. LVEF is 55%. Right Ventricle The right ventricle is normal size. The right ventricular systolic function is normal. Atria The left atrium size is normal. The right atrium size is normal. The interatrial septum is intact with no evidence for an atrial septal defect. Aortic Valve The aortic valve is normal in structure. Aortic valve is trileaflet. There is no aortic valvular stenosis. No aortic regurgitation is present. Mitral Valve The mitral valve is normal in structure. No evidence of mitral valve stenosis. Trace mitral regurgitation. Tricuspid Valve The tricuspid valve is normal in structure. There is no tricuspid valve stenosis. Mild tricuspid regurgitation. The RVSP is 23.3 mmHg. Pulmonic Valve The pulmonary valve is normal in structure. There is no pulmonic valvular stenosis. Trace pulmonic regurgitation. Great Vessels The aortic root is normal in size. The ascending aorta is mildly dilated. Aortic arch is not well visualized. IVC is normal in size and collapses >50% with inspiration. Pericardium There is no pericardial effusion. 2D Dimensions IVSD d PLAX 1.14 cm M: 0.6-1.2 Ao Root d 2.96 cm M: 3.1 - 3.7 LVPW d PLAX 1.10 cm M: 0.6 - 1.2 Ao Asc Diam d 3.63 cm M: 2.6 - 3.4 LVID d PLAX 4.81 cm M: 4.2 - 5.8 LVDs 3.34 cm M: 2.5 - 4.0 LV EF Teichholz 58.0 % FS 30.57 % LV EDV (Teich) 107.9 mL LV ESV (Teich) 45.4 mL M-Mode TAPSE 2.02 cm (M/F) >1.7 Auto EF LV EDV A4C 113.4 mL LV EDV A2C 127.7 mL LV EDV BP 121.4 mL LV ESV A4C 50.8 mL LV ESV A2C 58.0 mL LV ESV BP 54.1 mL LVEF(%) A4C 55.2 % LVEF(%) A2C 54.6 % LVEF(%) BP 55.4 % LV SV A4C 62.6 ml LV SV A2C 69.8 ml LV SV BP 67.3 ml LV CO A4C 5.1 L/min LV CO A2C 5.8 L/min LV CO BP 5.4 L/min HR A4C 81.27 BPM HR A2C 83.14 BPM LV EDV Index (BP) LA Volume LA Length A4C 5.5 cm LA Length A2C 5.4 cm LA Area A4C s 18.23 cm2 LA Area A2C s 15.69 cm2 LA Vol A4C A-L 51.47 mL LA Vol A2C A-L 38.60 mL LA Vol Biplane A-L 44.9 mL LA Vol/BSA A4C A-L LA Vol/BSA A2C A-L LA Vol/BSA BP A-L 23.2 mL/m2 LA Vol A4C MOD 47.1 mL LA Vol A2C MOD 37.2 mL LA Vol BP MOD 41.9 mL RA Volume RA Area A4C 10.5 cm2 RA ESV A4C (A-L) 24.1mL RA Vol/BSA A4C A-L RA Length A4C 3.9 cm RA ESV A4C (MOD) 22.6mL LV Diastology MV E' medial 0.051 (>0.07 m/s) MV E Vmax 0.66 (0.4-1.3 m/s) MV E/E' MED 12.87 (<14) MV A Vmax 1.00 (0.4-1.3 m/s) MV E' lateral 0.046 (>0.1 m/s) E/A Ratio 0.7 MV E/E' LAT 14.37 (<14) MV E' Average 0.049 m/s MV E/E'(average) 13.58 Aortic Valve AoV Vmax 1.34 m/s LVOT Vmax 1.20 m/s AoV Peak Grad 7.2 mmHg LVOT Peak Grad 5.7 mmHg AoV Area (Vmax) 2.83 cm2 LVOT VTI 0.233 m AoV VTI 0.271 m LVOT Mean Grad 3.8 mmHg AoV Mean Regan. 0.94 m/s LVOT SV 73.90 mL AoV Mean Grad 4.0 mmHg LVOT Diam s 2.00 cm AoV Area (VTI) 2.73 cm2 AV Regurg Peak Gr. 7.17 mmHg Velocity Ratio 0.90 Mitral Valve MV DT 246 (160-240 msec) MV Vmax TIPS 0.96 m/s MV Mean Grad 1.5 (<2mmHg) MV VTI 0.228 m Pulmonary Valve PV Vmax 1.17 (0.5-1.5 m/s) RVOT Vmax 0.80 m/s PV Peak Grad 5.5 mmHg RVOT Peak Gr. 2.6 mmHg PV Mean Regan 0.78 m/s RVOT VTI 0.150 m PV Mean Grad 2.7 mmHg RVOT Mean Gr. 1.2 mmHg Tricuspid Valve RA Pressure 3.00 mmHg TR Vmax 2.25 m/s TV S' 0.15 m/s TR Peak Grad 20.3 mmHg RVSP (TR) 23.3 mmHg
== END ==
LOC: DI 01:22
PROVIDERS: PCP Family Medicine; Visit Provider Family Medicine
DX: R60.0 Localized edema (principal); I45.10 Unspecified right bundle-branch block
CPT/HCPCS: 93306